=== PATIENT | female | born 1975 | race Caucasian/White ===

== ENCOUNTER 2018-03-21 12:20 | Inpatient (IN) | payer OTHER ==
[~2018-03-21] VITALS: Ht 160 cm; Wt 62.2 kg
[2018-03-21 12:32] VITALS: Ht 160 cm; Wt 62.2 kg
[2018-03-21 14:35] LABS: BASOPHIL % 0.2 % (0-2); PLATELET COUNT 309 x10^3mcL (130-400); RED CELL DISTRIBUTION WIDTH 14.5 % (11.5-14.5)
[2018-03-21 14:40] LABS: CARBON DIOXIDE 24.7 mmol/L (21-32); CHLORIDE SERUM 105 mmol/L (98-107); CREATININE SERUM 0.7 mg/dL (0.6-1.0); GFR1 > 60 mL/min; GLUCOSE SERUM 142 mg/dL (74-106); POTASSIUM SERUM 3.5 mmol/L (3.5-5.1); SODIUM SERUM 140 mmol/L (136-145)
[2018-03-21 14:46] LABS: UA SPECIFIC GRAVITY <=1.005 (1.005-1.035); microscopic required? YES; urine erythrocyte TRACE (NEGATIVE)
[2018-03-21 14:50] LABS: ALKALINE PHOSPHATASE 109 U/L (46-116); ALT/SGPT 190 U/L (14-59); AST/SGOT 349 U/L (15-37); BILIRUBIN TOTAL 0.44 mg/dL (0.20-1.00); CHOLESTEROL 185 mg/dL (<200); HDL CHOLESTEROL 37 mg/dL (40-60); T4(THYROXINE) 8.1 ug/dL (4.7-13.3); TOTAL PROTEIN, SERUM 7.8 g/dL (6.4-8.2)
[2018-03-21 14:53] LABS: AMYLASE 188 U/L (25-115)
[2018-03-21 15:05] LABS: AMPHETAMINE QUAL UR NONE DETECTED (See below)
[2018-03-21 15:09] LABS: LIPASE 5474 IU/L (73-393)
[2018-03-21 18:05] VITALS: BP 123/80
[2018-03-21 21:01] VITALS: BP 103/64
[2018-03-22 05:19] VITALS: BP 109/59
[2018-03-22 05:38] LABS: BASOPHIL % 0.3 % (0-2); PLATELET COUNT 271 x10^3mcL (130-400); RED CELL DISTRIBUTION WIDTH 14.4 % (11.5-14.5)
[2018-03-22 05:39] LABS: CHOLESTEROL/HDL RATIO 3.5
[2018-03-22 05:41] LABS: CALCIUM 8.1 mg/dL (8.5-10.1); CARBON DIOXIDE 22.9 mmol/L (21-32); CHLORIDE SERUM 108 mmol/L (98-107); CREATININE SERUM 0.6 mg/dL (0.6-1.0); GFR1 > 60 mL/min; GLUCOSE SERUM 125 mg/dL (74-106); MAGNESIUM 1.9 mg/dL (1.8-2.4); POTASSIUM SERUM 3.5 mmol/L (3.5-5.1); SODIUM SERUM 141 mmol/L (136-145)
[2018-03-22 06:00] LABS: BILIRUBIN DIRECT 0.62 mg/dL (0.0-0.2); BILIRUBIN TOTAL 1.65 mg/dL (0.20-1.00); TOTAL PROTEIN, SERUM 6.5 g/dL (6.4-8.2)
[2018-03-22 06:04] LABS: ALBUMIN 3.2 g/dL (3.4-5.0)
[2018-03-22 08:37] VITALS: BP 97/64
[2018-03-22 13:28] VITALS: BP 112/64
[2018-03-22 17:25] VITALS: BP 111/61
[2018-03-22 20:38] VITALS: BP 98/57
[2018-03-23 05:44] VITALS: BP 99/61
[2018-03-23 05:58] LABS: BASOPHIL % 0.7 % (0-2); PLATELET COUNT 270 x10^3mcL (130-400)
[2018-03-23 06:34] LABS: ALKALINE PHOSPHATASE 132 U/L (46-116); ALT/SGPT 540 U/L (14-59); AST/SGOT 234 U/L (15-37); BILIRUBIN DIRECT 0.25 mg/dL (0.0-0.2); BILIRUBIN TOTAL 0.57 mg/dL (0.20-1.00); CALCIUM 8.8 mg/dL (8.5-10.1); CARBON DIOXIDE 23.6 mmol/L (21-32); CHLORIDE SERUM 106 mmol/L (98-107); CREATININE SERUM 0.6 mg/dL (0.6-1.0); GFR1 > 60 mL/min; GLUCOSE SERUM 138 mg/dL (74-106); LIPASE 104 IU/L (73-393); MAGNESIUM 2.1 mg/dL (1.8-2.4); POTASSIUM SERUM 3.8 mmol/L (3.5-5.1); SODIUM SERUM 140 mmol/L (136-145); TOTAL PROTEIN, SERUM 6.7 g/dL (6.4-8.2)
[2018-03-23 06:37] LABS: ALBUMIN 3.2 g/dL (3.4-5.0)
[2018-03-23 09:22] VITALS: BP 112/65
[2018-03-23] MEDS ORDERED: ACETAMINOPHEN-H1 TA1 PO (15:14)
[2018-03-23 15:31] VITALS: BP 112/65
== END 2018-03-23 16:35 | disposition home or self-care (01) | DRG 282 ==
LOC: ED 12:20 → DU 16:48 → MU 16:48 → DU 17:58 → MU 03-22 11:58
PROVIDERS: Emergency Medicine; Internal Medicine Pulmonary Disease
DX: K85.90 Acute pancreatitis without necrosis or infection, unspecified (principal); Z90.49 Acquired absence of other specified parts of digestive tract
CPT/HCPCS: 78226; 83880; A9537; G0480; J1644; J7042; Q0092